=== PATIENT | female | born 1955 | race Caucasian/White ===

== ENCOUNTER 2023-02-23 12:34 | Outpatient (CLI) | payer MEDICARE, OTHER | END 2023-02-23 12:35 | disposition home or self-care (01) | LOC: CSHER/OP 12:34 | PROVIDERS: ATTEND Family Medicine | DX: B34.9 Viral infection, unspecified (principal) | CPT/HCPCS: 71046 ==

== ENCOUNTER 2023-05-23 12:49 | Outpatient (CLI) | payer MEDICARE, OTHER | END 2023-05-23 12:50 | disposition home or self-care (01) | LOC: CSHMAMMO 12:49 | PROVIDERS: ATTEND Family Medicine | DX: Z12.31 Encounter for screening mammogram for malignant neoplasm of breast (principal); Z98.82 Breast implant status; Z90.12 Acquired absence of left breast and nipple; Z98.890 Other specified postprocedural states | CPT/HCPCS: 77063; 77067 ==